=== PATIENT | male | born 1945 | race Caucasian/White ===

== ENCOUNTER 2022-08-29 19:56 | Inpatient (IN) | payer MEDICARE ==
[2022-08-29] MEDS ORDERED: Pantoprazole 40 MG VIAL ONE (20:58)
[2022-08-29 21:24] LABS: #Monocytes 0.7 10x3/uL (0.0-1.1); #Neutrophils 10.2 10x3/uL (1.5-8.4); %Basophils 0.1 % (0.0-2.0); %Lymphocytes 20.5 % (18.0-47.0); %Monocytes 4.8 % (0.0-10.0); %Neutrophils 73.6 % (40.0-75.0); Mean Corpuscular HGB CONC 33.7 g/dL (32.0-36.0); Mean Corpuscular Hemoglobin 30.3 pg (27.0-33.0); Mean Platelet Volume 9.6 fl (7.4-10.4); Platelet Count 214 10x3/uL (150-450); RBC Distribution Width 14.1 % (11.5-14.5); Red Blood Cell (RBC) Count 2.31 10x6/uL (4.32-5.72); White Blood Cell (WBC) Count 13.9 10x3/uL (3.5-10.5)
[2022-08-29 21:32] LABS: INR-International Normal Ratio 1.1; PTT 21.9 sec (22.0-33.0); Prothrombin Time 11.9 sec (9.5-12.1)
[2022-08-29 21:34] LABS: Albumin 3.1 g/dL (3.4-4.8); Alkaline Phosphatase 41 U/L (40-110); Anion Gap 11 mmol/L (10-20); BUN (Urea Nitrogen) 66 mg/dL (8.4-25.7); Bilirubin, Total 0.5 mg/dL (0.2-1.2); Calc. Creatinine Clearance 0 mL/min (70-130); Calcium 8.4 mg/dL (7.8-10.44); Carbon Dioxide 20 mmol/L (23-31); Chloride 117 mmol/L (98-107); Estimated GFR 70; Globulin 1.5 g/dL (2.4-3.5); Glucose 154 mg/dL (83-110); Potassium 4.2 mmol/L (3.5-5.1); Protein, Total 4.6 g/dL (5.8-8.1); Sodium 144 mmol/L (136-145)
[2022-08-29 21:35] LABS: ALT (SGPT) 20 U/L (8-55); AST (SGOT) 16 U/L (5-34)
[2022-08-29 21:41] LABS: Bilirubin Neg (Negative); Blood, Urine Negative (Negative); Clarity Clear (Clear); Glucose, Urine (Dipstick) Normal (Negative); Ketone, Urine Negative (Negative); Leukocyte Negative (Negative); Nitrite Negative (Negative); Protein, Urine (Dipstick) 15 mg/dl (Neg-Trace); Specific Gravity, Urine 1.015 (1.005-1.030); Urobilinogen Normal mg/dL (Less than 2)
[2022-08-29 21:43] LABS: Urine Culture Reflex No No
[2022-08-29 21:47] LABS: Bacteria/HPF None Seen HPF (None Seen); RBC/HPF 0-3 HPF (0-3); Squamous Epithelial 0-3 HPF (0-3); WBC/HPF 0-3 HPF (0-3)
[2022-08-29 21:53] VITALS: BMI 27.0
[2022-08-29] MEDS: Lactated Ringer's 1,000 ML IV SCH (22:25)
[2022-08-29] MEDS: Gabapentin 300 MG CAP PO SCH ×2 (22:26→22:43)
[2022-08-29] MEDS: Ondansetron PF 4 MG/2 ML Vial IVP PRN (22:27)
[2022-08-29] MEDS: Pantoprazole 80 MG in Sodium Chloride 0.9% 100 ML IVPB SCH (22:51)
[2022-08-29] MEDS ORDERED: Promethazine HCl 12.5 MG in Sodium Chloride 0.9% 50 ML IVPB SCH (23:45)
[2022-08-30] MEDS ORDERED: SUGAMMADEX SODIUM 200 MG/2 ML VIAL ONE (00:36)
[2022-08-30] MEDS ORDERED: Phenylephrine 10 MG/ML VIAL ONE (00:36)
[2022-08-30] MEDS ORDERED: Ketamine 50 MG/ML (10ML VIAL) ONE (00:36)
[2022-08-30] MEDS ORDERED: PHENYLEPHRINE-NS 100 MCG/ML 10 ML SYRINGE ONE (00:38)
[2022-08-30] MEDS ORDERED: PROPOFOL 20 ML ONE (00:38)
[2022-08-30] MEDS ORDERED: Dexmedetomidine 200 MCG/2 ML VIAL ONE (00:46)
[2022-08-30] MEDS ORDERED: Glycopyrrolate 0.2 MG/ML 5 ML SYRINGE ONE (01:08)
[2022-08-30] MEDS ORDERED: EPINEPHrine 1 MG/10 ML Abboject SYRINGE ONE ×2 (01:32→21:59)
[2022-08-30 05:02] LABS: #Neutrophils 8.9 10x3/uL (1.5-8.4); %Basophils 0.2 % (0.0-2.0); %Neutrophils 73.7 % (40.0-75.0); Hemoglobin 7.8 g/dL (13.5-17.5); Mean Corpuscular HGB CONC 33.8 g/dL (32.0-36.0); Mean Corpuscular Hemoglobin 30.4 pg (27.0-33.0); Mean Corpuscular Volume 89.9 fl (81.2-95.1); Mean Platelet Volume 10.5 fl (7.4-10.4); Platelet Count 153 10x3/uL (150-450); RBC Distribution Width 14.8 % (11.5-14.5); Red Blood Cell (RBC) Count 2.57 10x6/uL (4.32-5.72)
[2022-08-30 05:06] LABS: Anion Gap 10 mmol/L (10-20); BUN (Urea Nitrogen) 59 mg/dL (8.4-25.7); Calc. Creatinine Clearance 61 mL/min (70-130); Calcium 7.7 mg/dL (7.8-10.44); Carbon Dioxide 20 mmol/L (23-31); Chloride 118 mmol/L (98-107); Estimated GFR 67; Glucose 168 mg/dL (83-110); Sodium 144 mmol/L (136-145)
[2022-08-30] MEDS: Pantoprazole 80 MG in Sodium Chloride 0.9% 100 ML IVPB SCH ×2 (06:29→16:48)
[2022-08-30] MEDS: Lactated Ringer's 1,000 ML IV SCH ×3 (08:32→23:46)
[2022-08-30] MEDS: Trospium 20 MG TAB PO SCH ×2 (08:34→20:09)
[2022-08-30] MEDS: Gabapentin 300 MG CAP PO SCH ×2 (08:34→21:27)
[2022-08-30] MEDS ORDERED: Atorvastatin Calcium 40 MG TAB PO SCH (09:00)
[2022-08-30] MEDS ORDERED: FLU VACC QS2022-23(65YR UP)/PF 240 MCG/0.7 ML SYRINGE IM ONE (09:00)
[2022-08-30] MEDS ORDERED: PARoxetine 20 MG TAB PO SCH (09:00)
[2022-08-30 10:01] LABS: #Monocytes 1.1 10x3/uL (0.0-1.1); #Neutrophils 7.5 10x3/uL (1.5-8.4); %Basophils 0.3 % (0.0-2.0); %Lymphocytes 26.7 % (18.0-47.0); %Monocytes 8.8 % (0.0-10.0); %Neutrophils 63.4 % (40.0-75.0); Hemoglobin 6.7 g/dL (13.5-17.5); Mean Corpuscular HGB CONC 32.8 g/dL (32.0-36.0); Mean Corpuscular Volume 91.5 fl (81.2-95.1); Mean Platelet Volume 10.5 fl (7.4-10.4); Platelet Count 148 10x3/uL (150-450); RBC Distribution Width 15.4 % (11.5-14.5); Red Blood Cell (RBC) Count 2.23 10x6/uL (4.32-5.72); White Blood Cell (WBC) Count 11.9 10x3/uL (3.5-10.5)
[2022-08-30 13:53] LABS: Hemoglobin A1c 5.2 % (4.0-6.0)
[2022-08-30 15:58] LABS: Hemoglobin 7.4 g/dL (13.5-17.5)
[2022-08-30] MEDS: Ondansetron PF 4 MG/2 ML Vial IVP PRN (18:51)
[2022-08-30] MEDS ORDERED: Promethazine HCl 25 MG in Sodium Chloride 0.9% 50 ML IVPB SCH (20:45)
[2022-08-30] MEDS ORDERED: Lactated Ringer's 500 ML IV SCH (20:45)
[2022-08-30 21:15] LABS: #Monocytes 1.2 10x3/uL (0.0-1.1); #Neutrophils 13.1 10x3/uL (1.5-8.4); %Basophils 0.1 % (0.0-2.0); %Eosinophils 0.1 % (0.0-6.0); %Lymphocytes 29.2 % (18.0-47.0); %Monocytes 5.9 % (0.0-10.0); %Neutrophils 63.4 % (40.0-75.0); Hemoglobin 4.4 g/dL (13.5-17.5); Mean Corpuscular HGB CONC 33.3 g/dL (32.0-36.0); Mean Platelet Volume 10.8 fl (7.4-10.4); Platelet Count 131 10x3/uL (150-450); RBC Distribution Width 15.6 % (11.5-14.5); Red Blood Cell (RBC) Count 1.42 10x6/uL (4.32-5.72); White Blood Cell (WBC) Count 20.6 10x3/uL (3.5-10.5)
[2022-08-30 21:44] LABS: Anisocytosis SLIGHT = 6-15 cells (100X) (0-5/hpf); Hypochromia SLIGHT = 6-15 cells (100X) (0-5/hpf); Ovalocytes SLIGHT = 2-5 cells (100X) (0-1/hpf); Platelet Morphology Comment Appears Decreased; Polychromasia SLIGHT = 2-3 cells (100X) (0-2/hpf)
[2022-08-30 21:45] LABS: Reflex for Review?? YES
[2022-08-30] MEDS ORDERED: Ventilator Sedation Protocol 1 EACH FS ONE (21:47)
[2022-08-30] MEDS: Propofol 1,000 MG/100 ML VIAL IV PRN (21:58)
[2022-08-30] MEDS ORDERED: Lorazepam 2 MG/ML VIAL SLOW IVP PRN (22:00)
[2022-08-30] MEDS ORDERED: DISCONTINUE PREVIOUS NARCOTIC PAIN MEDICATIONS AND BENZODIAZEPINES FS SCH (22:00)
[2022-08-30] MEDS ORDERED: Morphine 2 MG/ML VIAL SLOW IVP PRN (22:00)
[2022-08-30] MEDS ORDERED: Propofol BOLUS 1,000 MG/100 ML VIAL IV PRN (22:00)
[2022-08-30] MEDS ORDERED: Fentanyl BOLUS 250 ML IVPB PRN (22:00)
[2022-08-30] MEDS: FENTANYL 2,000MCG/100-0.9%NACL 100 ML IVPB SCH (22:52)
[2022-08-30 23:26] LABS: Actual Bicarbonate (HCO3a) 20.1 mEq/L (22-28); CO2 Tension 36.5 mmHg (35.0-45.0); Calcium, Ionized (arterial) 1.05 mmol/L (1.12-1.30); Carboxyhemoglobin (COHb) 0.3 gm% (0.0-3.0); Critical Notified By: CP.JL; Hemoglobin (Hb) 6.4 g/dL (14.0-18.0); O2 Tension (PaO2), arterial 515.2 mmHg (> 70.0); Potassium - ABG Lab 3.7 mmol/L (3.70-5.30); Puncture Site RRA; RapidComm Collect By CP.JL; pH, Arterial 7.36 (7.35-7.45)
[2022-08-30 23:28] LABS: ALV-art Gradient 152.175 mmHg (0-20)
[2022-08-31 01:11] LABS: Hemoglobin 6.2 g/dL (13.5-17.5); Mean Corpuscular HGB CONC 34.4 g/dL (32.0-36.0); Mean Platelet Volume 10.6 fl (7.4-10.4); Platelet Count 79 10x3/uL (150-450); RBC Distribution Width 14.4 % (11.5-14.5); White Blood Cell (WBC) Count 11.7 10x3/uL (3.5-10.5)
[2022-08-31] MEDS: Propofol 1,000 MG/100 ML VIAL IV PRN ×2 (01:39→10:27)
[2022-08-31 03:34] LABS: #Monocytes 0.9 10x3/uL (0.0-1.1); #Neutrophils 7.9 10x3/uL (1.5-8.4); %Basophils 0.1 % (0.0-2.0); %Eosinophils 0.1 % (0.0-6.0); %Lymphocytes 15.2 % (18.0-47.0); %Neutrophils 75.1 % (40.0-75.0); Mean Corpuscular HGB CONC 34.8 g/dL (32.0-36.0); Mean Corpuscular Hemoglobin 30.3 pg (27.0-33.0); Mean Platelet Volume 10.3 fl (7.4-10.4); Platelet Count 73 10x3/uL (150-450); RBC Distribution Width 14.9 % (11.5-14.5); Red Blood Cell (RBC) Count 2.31 10x6/uL (4.32-5.72); White Blood Cell (WBC) Count 10.6 10x3/uL (3.5-10.5)
[2022-08-31 03:42] LABS: Anion Gap 7 mmol/L (10-20); BUN (Urea Nitrogen) 35 mg/dL (8.4-25.7); Calc. Creatinine Clearance 73 mL/min (70-130); Calcium 7.3 mg/dL (7.8-10.44); Carbon Dioxide 24 mmol/L (23-31); Chloride 116 mmol/L (98-107); Estimated GFR 84; Glucose 187 mg/dL (83-110); Potassium 4.1 mmol/L (3.5-5.1); Sodium 143 mmol/L (136-145)
[2022-08-31] MEDS: Pantoprazole 80 MG in Sodium Chloride 0.9% 100 ML IVPB SCH ×2 (04:28→13:22)
[2022-08-31] MEDS ORDERED: Succinylcholine 200 MG/10 ml SYRINGE FS ONE (07:00)
[2022-08-31 08:35] LABS: Hemoglobin 7.3 g/dL (13.5-17.5); Mean Corpuscular HGB CONC 34.4 g/dL (32.0-36.0); Mean Corpuscular Hemoglobin 29.9 pg (27.0-33.0); Mean Corpuscular Volume 86.9 fl (81.2-95.1); Mean Platelet Volume 10.5 fl (7.4-10.4); Platelet Count 83 10x3/uL (150-450); RBC Distribution Width 15.5 % (11.5-14.5); Red Blood Cell (RBC) Count 2.44 10x6/uL (4.32-5.72); White Blood Cell (WBC) Count 9.5 10x3/uL (3.5-10.5)
[2022-08-31] MEDS ORDERED: PARoxetine 20 MG TAB PO SCH (09:00)
[2022-08-31] MEDS: Lactated Ringer's 1,000 ML IV SCH (13:22)
[2022-08-31] MEDS: FENTANYL 2,000MCG/100-0.9%NACL 100 ML IVPB SCH (14:18)
[2022-08-31] MEDS ORDERED: Dexmedetomidine In 0.9 % NaCl 100 ML ONE (15:15)
[2022-08-31] MEDS: Dexmedetomidine In 0.9 % NaCl 400 MCG in Premix Bag 1 BAG IVPB SCH (15:22)
[2022-09-01] MEDS: Pantoprazole 80 MG in Sodium Chloride 0.9% 100 ML IVPB SCH ×2 (02:26→13:03)
[2022-09-01] MEDS: Lactated Ringer's 1,000 ML IV SCH ×2 (02:27→15:04)
[2022-09-01 03:59] LABS: #Monocytes 0.6 10x3/uL (0.0-1.1); #Neutrophils 6.5 10x3/uL (1.5-8.4); %Basophils 0.1 % (0.0-2.0); %Eosinophils 0.3 % (0.0-6.0); %Lymphocytes 18.8 % (18.0-47.0); %Monocytes 6.3 % (0.0-10.0); Hemoglobin 6.2 g/dL (13.5-17.5); Mean Corpuscular HGB CONC 34.3 g/dL (32.0-36.0); Mean Corpuscular Hemoglobin 30.4 pg (27.0-33.0); Mean Corpuscular Volume 88.7 fl (81.2-95.1); Mean Platelet Volume 10.5 fl (7.4-10.4); Platelet Count 92 10x3/uL (150-450); RBC Distribution Width 16.3 % (11.5-14.5); Red Blood Cell (RBC) Count 2.04 10x6/uL (4.32-5.72); White Blood Cell (WBC) Count 8.9 10x3/uL (3.5-10.5)
[2022-09-01 04:06] LABS: Anion Gap 8 mmol/L (10-20); BUN (Urea Nitrogen) 29 mg/dL (8.4-25.7); Calc. Creatinine Clearance 77 mL/min (70-130); Calcium 7.3 mg/dL (7.8-10.44); Carbon Dioxide 22 mmol/L (23-31); Chloride 116 mmol/L (98-107); Estimated GFR 88; Glucose 136 mg/dL (83-110); Potassium 4.2 mmol/L (3.5-5.1); Sodium 142 mmol/L (136-145)
[2022-09-01] MEDS: Dexmedetomidine In 0.9 % NaCl 400 MCG in Premix Bag 1 BAG IVPB SCH (08:55)
[2022-09-01] MEDS ORDERED: Ziprasidone 20 MG VIAL IM PRN (12:22)
[2022-09-01] MEDS ORDERED: Haloperidol Lactate 5 MG/ML VIAL SLOW IVP PRN (12:23)
[2022-09-01 13:49] LABS: Hemoglobin 6.4 g/dL (13.5-17.5)
[2022-09-01] MEDS ORDERED: Morphine 2 MG/ML VIAL SLOW IVP SCH (23:30)
[2022-09-01] MEDS ORDERED: Promethazine HCl 12.5 MG, Admixture Fee 1 EACH in Sodium Chloride 0.9% 50 ML IVPB SCH (23:45)
[2022-09-01 23:51] LABS: #Eosinphils 0.1 10x3/uL (0.0-0.5); #Monocytes 0.4 10x3/uL (0.0-1.1); #Neutrophils 3.6 10x3/uL (1.5-8.4); %Basophils 0.2 % (0.0-2.0); %Eosinophils 1.1 % (0.0-6.0); %Lymphocytes 27.3 % (18.0-47.0); %Monocytes 6.9 % (0.0-10.0); Hemoglobin 7.6 g/dL (13.5-17.5); Mean Corpuscular HGB CONC 33.9 g/dL (32.0-36.0); Mean Corpuscular Hemoglobin 29.8 pg (27.0-33.0); Mean Corpuscular Volume 87.8 fl (81.2-95.1); Mean Platelet Volume 10.8 fl (7.4-10.4); Platelet Count 104 10x3/uL (150-450); RBC Distribution Width 15.7 % (11.5-14.5); Red Blood Cell (RBC) Count 2.55 10x6/uL (4.32-5.72); White Blood Cell (WBC) Count 5.7 10x3/uL (3.5-10.5)
[2022-09-02] MEDS: Lactated Ringer's 1,000 ML IV SCH ×3 (01:58→21:04)
[2022-09-02] MEDS: Pantoprazole 80 MG in Sodium Chloride 0.9% 100 ML IVPB SCH ×3 (02:03→20:35)
[2022-09-02 05:11] LABS: #Eosinphils 0.1 10x3/uL (0.0-0.5); #Monocytes 0.3 10x3/uL (0.0-1.1); #Neutrophils 3.1 10x3/uL (1.5-8.4); %Basophils 0.2 % (0.0-2.0); %Eosinophils 1.1 % (0.0-6.0); %Lymphocytes 24.2 % (18.0-47.0); %Monocytes 6.4 % (0.0-10.0); %Neutrophils 67.4 % (40.0-75.0); Hemoglobin 6.6 g/dL (13.5-17.5); Mean Corpuscular HGB CONC 34.2 g/dL (32.0-36.0); Mean Corpuscular Volume 87.7 fl (81.2-95.1); Mean Platelet Volume 10.3 fl (7.4-10.4); Platelet Count 100 10x3/uL (150-450); RBC Distribution Width 15.6 % (11.5-14.5); White Blood Cell (WBC) Count 4.5 10x3/uL (3.5-10.5)
[2022-09-02 05:13] LABS: Anion Gap 8 mmol/L (10-20); BUN (Urea Nitrogen) 19 mg/dL (8.4-25.7); Calc. Creatinine Clearance 90 mL/min (70-130); Calcium 7.5 mg/dL (7.8-10.44); Carbon Dioxide 25 mmol/L (23-31); Chloride 115 mmol/L (98-107); Estimated GFR 92; Glucose 91 mg/dL (83-110); Potassium 3.1 mmol/L (3.5-5.1); Sodium 145 mmol/L (136-145)
[2022-09-02] MEDS ORDERED: Potassium Chloride 40 MEQ in Premix Bag 1 BAG IVPB SCH ×2 (06:15→11:00)
[2022-09-02] MEDS ORDERED: Electrolyte Replacement Protocol 1 EACH FS SCH (08:30)
[2022-09-02] MEDS: Ondansetron PF 4 MG/2 ML Vial IVP PRN (09:49)
[2022-09-02] MEDS ORDERED: Fentanyl 100 MCG/2 ML VIAL SLOW IVP PRN (10:40)
[2022-09-02] MEDS ORDERED: PROPOFOL 20 ML ONE (13:36)
[2022-09-02] MEDS ORDERED: EPINEPHrine 1 MG/10 ML Abboject SYRINGE ONE (13:42)
[2022-09-02] MEDS ORDERED: Fentanyl 100 MCG/2 ML VIAL ONE (13:44)
[2022-09-02 15:49] LABS: Hemoglobin 8.5 g/dL (13.5-17.5)
[2022-09-02 18:16] LABS: Potassium 3.6 mmol/L (3.5-5.1)
[2022-09-03 05:05] LABS: Anion Gap 11 mmol/L (10-20); BUN (Urea Nitrogen) 16 mg/dL (8.4-25.7); Calc. Creatinine Clearance 86 mL/min (70-130); Calcium 7.9 mg/dL (7.8-10.44); Carbon Dioxide 22 mmol/L (23-31); Chloride 112 mmol/L (98-107); Estimated GFR 91; Glucose 94 mg/dL (83-110); Magnesium 1.8 mg/dL (1.6-2.6); Phosphorus 2.5 mg/dL (2.3-4.7); Potassium 3.6 mmol/L (3.5-5.1); Sodium 141 mmol/L (136-145)
[2022-09-03 05:09] LABS: #Eosinphils 0.1 10x3/uL (0.0-0.5); #Monocytes 0.4 10x3/uL (0.0-1.1); #Neutrophils 3.7 10x3/uL (1.5-8.4); %Basophils 0.4 % (0.0-2.0); %Eosinophils 1.6 % (0.0-6.0); %Lymphocytes 22.2 % (18.0-47.0); %Monocytes 7.8 % (0.0-10.0); %Neutrophils 67.6 % (40.0-75.0); Hemoglobin 8.7 g/dL (13.5-17.5); Mean Corpuscular Hemoglobin 29.9 pg (27.0-33.0); Mean Platelet Volume 9.7 fl (7.4-10.4); Platelet Count 118 10x3/uL (150-450); RBC Distribution Width 15.7 % (11.5-14.5); Red Blood Cell (RBC) Count 2.91 10x6/uL (4.32-5.72); White Blood Cell (WBC) Count 5.5 10x3/uL (3.5-10.5)
[2022-09-03] MEDS: Pantoprazole 80 MG in Sodium Chloride 0.9% 100 ML IVPB SCH ×2 (05:23→16:42)
[2022-09-03] MEDS ORDERED: Magnesium 2 GM/50 ML(in water) 2 GM in Premix Bag 1 BAG IVPB SCH (06:00)
[2022-09-03] MEDS: Lactated Ringer's 1,000 ML IV SCH ×2 (20:14→23:37)
[2022-09-04 04:26] LABS: Magnesium 2.2 mg/dL (1.6-2.6)
[2022-09-04] MEDS: Pantoprazole 80 MG in Sodium Chloride 0.9% 100 ML IVPB SCH (05:30)
[2022-09-04 08:35] VITALS: BP 150/76; TEMP 98.3
== END 2022-09-04 10:51 | disposition home or self-care (01) | DRG 377 ==
LOC: CSHERS 19:56 → CSHIMCU 21:34 → CSHTELE 09-03 23:39
PROVIDERS: ADMIT Student in an Organized Health Care Education/Training Program; ATTEND Internal Medicine
PROC: 30233K1 Transfusion of Nonautologous Frozen Plasma into Peripheral Vein, Percutaneous Approach (ICD-10-PCS; principal; 2022-08-30)
PROC: 30233N1 Transfusion of Nonautologous Red Blood Cells into Peripheral Vein, Percutaneous Approach (ICD-10-PCS; 2022-08-30)
PROC: 0W3P8ZZ Control Bleeding in Gastrointestinal Tract, Via Natural or Artificial Opening Endoscopic (ICD-10-PCS; 2022-08-30)
PROC: 0BH17EZ Insertion of Endotracheal Airway into Trachea, Via Natural or Artificial Opening (ICD-10-PCS; 2022-08-31)
PROC: 5A1935Z Respiratory Ventilation, Less than 24 Consecutive Hours (ICD-10-PCS; 2022-08-31)
PROC: 0DJ08ZZ Inspection of Upper Intestinal Tract, Via Natural or Artificial Opening Endoscopic (ICD-10-PCS; 2022-09-02)
DX: K26.4 Chronic or unspecified duodenal ulcer with hemorrhage (principal); R57.8 Other shock; D62 Acute posthemorrhagic anemia; N17.9 Acute kidney failure, unspecified; R65.10 Systemic inflammatory response syndrome (SIRS) of non-infectious origin without acute organ dysfunction; E87.29 Other acidosis; F05 Delirium due to known physiological condition; I10 Essential (primary) hypertension; E78.5 Hyperlipidemia, unspecified; E11.65 Type 2 diabetes mellitus with hyperglycemia; F43.10 Post-traumatic stress disorder, unspecified; R45.1 Restlessness and agitation; J44.9 Chronic obstructive pulmonary disease, unspecified; E86.1 Hypovolemia; Z88.6 Allergy status to analgesic agent; Z88.0 Allergy status to penicillin; Z88.2 Allergy status to sulfonamides; Z88.1 Allergy status to other antibiotic agents; Z79.82 Long term (current) use of aspirin; Z79.899 Other long term (current) drug therapy; Z90.49 Acquired absence of other specified parts of digestive tract; Z87.891 Personal history of nicotine dependence; Z98.41 Cataract extraction status, right eye; Z98.42 Cataract extraction status, left eye
CPT/HCPCS: 36415; 36430; 36600; 71045; 80048; 81001; 82805; 83036; 83735; 84100; 85025; 85060; 86850; 86900; 86901; 86922; 87338; 94002; 94003; 94760; 96374; A4215; C9113; J0171; J2060; J2270; J2370; J2405; J2550; J2704; J3010; J3475; J3480; J3490; J7120; P9016; P9059